=== PATIENT | male | born 1950 | race Caucasian/White ===

== ENCOUNTER 2019-10-05 18:34 | Emergency (ER) | payer MEDICARE, OTHER ==
[~2019-10-05] VITALS: Ht 170.2 cm; Wt 56.7 kg
[2019-10-05] MEDS ORDERED: Prozac20 MG PO (18:41)
[2019-10-05] MEDS ORDERED: LEVE500 (18:41)
[2019-10-05] MEDS ORDERED: Citalopram HBr20 MG PO (18:42)
[2019-10-05] MEDS ORDERED: PLAVIX75 MG PO (18:42)
[2019-10-05] MEDS ORDERED: ROSUVASTATIN CA20 MG PO (18:42)
[2019-10-05] MEDS ORDERED: ASPI81CH PO (18:43)
[2019-10-05 20:55] LABS: Chloride (POC) 94 mmol/L (98-108); Creatinine (POC) 0.7 mg/dL (0.8-1.3); Glucose (ISTAT POC) 113 mg/dL (70-99); Hemoglobin (POC) 12.2 g/dL (13.5-17.5); Potassium (POC) 3.4 mmol/L (3.5-5.5); Sodium (POC) 131 mmol/L (135-148); Total CO2 (POC) 27 mmol/L (21-32)
== END 2019-10-05 21:48 | disposition home or self-care (01) ==
LOC: ER 18:34
PROVIDERS: Emergency Medicine
DX: G40.909 Epilepsy, unspecified, not intractable, without status epilepticus (principal); Z79.899 Other long term (current) drug therapy
CPT/HCPCS: 36415; 80047; 85014; 99284

== ENCOUNTER → 2020-03-22 | Outpatient (CLI) | payer MEDICARE, OTHER ==
[~2020-03-22] MED LIST: ASPI81CH PO; Citalopram HBr20 MG PO; LEVE500; PLAVIX75 MG PO; Prozac20 MG PO; ROSUVASTATIN CA20 MG PO
[2020-03-22 17:40] LABS: BASOPHILS ABSOLUTE AUTO 0.06 K/mm3 (0.00-0.23); BASOPHILS PERCENT AUTO 1 % (0-2); EOSINOPHILS ABSOLUTE AUTO 0.77 K/mm3 (0.00-0.68); EOSINOPHILS PERCENT AUTO 6 % (0-6); Hematocrit 38.5 % (37.0-53.0); Hemoglobin 12.8 g/dL (13.5-17.5); IMMATURE GRAN ABSOLUTE AUTO 0.04 K/mm3 (0.00-0.10); IMMATURE GRAN PERCENT AUTO 0 % (0-1); LYMPHOCYTES ABSOLUTE AUTO 2.25 K/mm3 (0.84-5.20); LYMPHOCYTES PERCENT AUTO 18 % (21-46); MONOCYTES ABSOLUTE AUTO 1.19 K/mm3 (0.16-1.47); MONOCYTES PERCENT AUTO 10 % (4-13); Mean Corpuscular HGB 31.5 pg (26.0-34.0); Mean Corpuscular HGB Conc 33.2 g/dL (31.5-36.5); Mean Corpuscular Volume 95 fL (80-100); Mean Platelet Volume 9.3 fL (9.1-12.4); NEUTROPHILS ABSOLUTE AUTO 7.96 K/mm3 (1.96-9.15); NEUTROPHILS PERCENT AUTO 65 % (41-73); Platelet Count 332 K/mm3 (150-400); RDW Coefficient Variation 12.9 % (11.7-14.2); Red Blood Cell Count 4.06 M/mm3 (4.30-5.90); White Blood Cell Count 12.27 K/mm3 (4.00-11.30)
[2020-03-22 18:46] LABS: Alanine Aminotransfer (ALT/SGP 18 U/L (12-78); Albumin, Blood 3.1 g/dL (3.4-5.0); Albumin/Globulin Ratio 0.8 (0.8-1.8); Alk Phos 75 U/L (50-136); Anion Gap 6 mmol/L (6-16); Aspartate Aminotrans (AST/SGOT 10 U/L (12-37); Bilirubin, Total 0.3 mg/dL (0.1-1.0); Blood Urea Nitrogen 18 mg/dL (8-24); Bun/Creatinine Ratio 19.6 (12.0-20.0); CHOL/HDL RATIO 3.8; CO2, Blood 25 mmol/L (21-32); Calcium, Blood 8.5 mg/dL (8.5-10.1); Chloride, Blood 101 mmol/L (98-108); Cholesterol 152 mg/dL (50-200); Creatinine, Blood 0.92 mg/dL (0.60-1.20); Globulin, Blood 3.8 g/dL (2.2-4.0); Glomerular Filtration Rate >60 (60-); Glucose, Blood 111 mg/dL (70-99); HDL Cholesterol 40 mg/dL (>39); LDL/HDL RATIO 1.8; Low Density Lipoprotein Chol 71 mg/dL (0-110); Potassium, Blood 4.1 mmol/L (3.5-5.5); Sodium, Blood 132 mmol/L (136-145); Total Protein, Blood 6.9 g/dL (6.4-8.2); Triglycerides 205 mg/dL (30-160); Very Low Density Lipoprot Chol 41 mg/dL (6-32)
== END | disposition home or self-care (01) ==
LOC: LAB SHORT 15:59 → LAB 15:59
PROVIDERS: Nurse Practitioner Family
DX: E78.5 Hyperlipidemia, unspecified (principal); I10 Essential (primary) hypertension
CPT/HCPCS: 80053; 80061; 85025

== ENCOUNTER 2020-07-16 18:28 | Inpatient (IN) | payer MEDICARE, OTHER ==
[~2020-07-16] VITALS: Ht 167.6 cm; Wt 67.8 kg
[2020-07-16 19:33] LABS: BASOPHILS ABSOLUTE AUTO 0.04 K/mm3 (0.00-0.23); BASOPHILS PERCENT AUTO 0 % (0-2); EOSINOPHILS PERCENT AUTO 0 % (0-6); Hematocrit 38.7 % (37.0-53.0); Hemoglobin 12.9 g/dL (13.5-17.5); IMMATURE GRAN ABSOLUTE AUTO 0.07 K/mm3 (0.00-0.10); IMMATURE GRAN PERCENT AUTO 1 % (0-1); LYMPHOCYTES ABSOLUTE AUTO 1.19 K/mm3 (0.84-5.20); LYMPHOCYTES PERCENT AUTO 9 % (21-46); MONOCYTES ABSOLUTE AUTO 0.88 K/mm3 (0.16-1.47); MONOCYTES PERCENT AUTO 7 % (4-13); Mean Corpuscular HGB 30.6 pg (26.0-34.0); Mean Corpuscular HGB Conc 33.3 g/dL (31.5-36.5); Mean Corpuscular Volume 92 fL (80-100); Mean Platelet Volume 9.2 fL (9.1-12.4); NEUTROPHILS ABSOLUTE AUTO 11.43 K/mm3 (1.96-9.15); NEUTROPHILS PERCENT AUTO 84 % (41-73); Platelet Count 377 K/mm3 (150-400); RDW Coefficient Variation 13.5 % (11.7-14.2); RDW Standard Deviation 45.8 fL (35.1-46.3); Red Blood Cell Count 4.22 M/mm3 (4.30-5.90); White Blood Cell Count 13.61 K/mm3 (4.00-11.30)
[2020-07-16 19:50] LABS: International Normalized Ratio 0.96; Prothrombin Time Results 10.3 Sec (9.7-11.5)
[2020-07-16 19:51] LABS: Alanine Aminotransfer (ALT/SGP 29 U/L (12-78); Albumin, Blood 3.6 g/dL (3.4-5.0); Albumin/Globulin Ratio 0.9 (0.8-1.8); Alk Phos 76 U/L (50-136); Anion Gap 9 mmol/L (6-16); Aspartate Aminotrans (AST/SGOT 55 U/L (12-37); Bilirubin, Total 0.5 mg/dL (0.1-1.0); Blood Urea Nitrogen 23 mg/dL (8-24); Bun/Creatinine Ratio 30.8 (12.0-20.0); CO2, Blood 22 mmol/L (21-32); Calcium, Blood 8.9 mg/dL (8.5-10.1); Chloride, Blood 104 mmol/L (98-108); Creatinine, Blood 0.75 mg/dL (0.60-1.20); Ethanol (Alcohol), Blood, Med <3 mg/dL; Globulin, Blood 3.9 g/dL (2.2-4.0); Glomerular Filtration Rate >60 (60-); Glucose, Blood 136 mg/dL (70-99); Sodium, Blood 135 mmol/L (136-145); Total Protein, Blood 7.5 g/dL (6.4-8.2)
[2020-07-16 20:00] LABS: Osmolality, Serum 288 mos/KG (275-300)
[2020-07-16 20:11] LABS: Base Excess Venous -1.2 mmol/L; Bicarbonate Venous 23.8 mmol/L (24.0-30.0); PCO2 Venous 34.4 mmHg (38-42); PO2 Venous 95.3 mmHg (38-42); pH Blood Venous 7.44 (7.34-7.37)
[2020-07-17 00:15] LABS: Bilirubin, Urine Neg (Neg); Blood, Urine 5+ (Neg); Glucose Qualitative, Urine Neg (Neg); Ketones, Urine 3+ (Neg); Leukocyte Esterase, Urine Neg (Neg); Nitrite, Urine Neg (Neg); Protein, Urine 2+ (Neg); Source, Urine Clean Catch; Urobilinogen, Urine NORM (Normal)
[2020-07-17 00:25] LABS: Appearance, Urine Clear (Clear); Color, Urine Yellow (P-Yellow)
[2020-07-17 00:26] LABS: Bacteria Mod /hpf; Squamous Epithelial Cells Rare /hpf (Few)
[2020-07-17 00:31] LABS: U Amphetamine Screen Not Detected; U Barbituate Screen Not Detected; U Benzodiazapine Screen Not Detected; U Buprenorphine Screen Not Detected; U Cannabinoids Screen Not Detected; U Cocaine Screen Not Detected; U Methadone Screen Not Detected; U Methamphetamine Screen Not Detected; U Opiates Screen Not Detected; U Oxycodone Screen Not Detected; U Phencyclidine Screen Not Detected; U Propoxyphene Screen Not Detected
--- NOTE | 2020-07-17 02:48 | NUR ---
ASSUMED CARE OF PATIENT AT APPROXIMATELY 2247 FROM ED RN BRADLEY. PATIENT ARRIVED TO UNIT VIA STRETCHER; HEPARIN GTT NOT CONNECTED TO PATIENT AND IV PUMP OFF; HEPARIN GTT RESTARTED AND VERIFIED; PHARMACIST LEO NOTIFIED. PATIENT ARRIVED TO UNIT VIA STRETCHER; TRANSFER FROM ED TO PCU STRETCHER WITH ONE ASSIST. PATIENT CONFUSED; ABLE TO ANSWER SOME QUESTIONS BUT MAKE ODD STATEMENTS. MED REC AND PART OF ADMISSION HX INCOMPLETE. PATIENT DENIES CP/PRESSURE, PAIN ELSEWHERE, NUMBNESS, TINGLING, DIZZINESS OR NAUSEA. PATIENT ABLE TO STATE NAME AND . NSR ON TELE; OXYGEN SATURATION ABOVE 90% ON ROOM AIR. BLADDER SCAN OVER 400; DR. PERALTA NOTIFIED; ORDERS FOR STRAIGHT CATH AND RECHECK BLADDER SCAN IN 6 HOURS. PATIENT ATTEMPTS TO AMBULATE INDEPENDENTLY; EDUCATED MULTIPLE TIMES BUSINESS DEVELOPMENT PROFESSIONAL LIGHT USAGE. PATIENT CURRENTLY RESTING IN BED; CALL LIGHT IN REACH; BED IN LOWEST POSISTION; BED ALARM ON; WILL CONTINUE TO MONITOR AND ASSESS UNTIL END OF SHIFT.
--- NOTE | 2020-07-17 03:11 | NUR ---
AT APPROXIMATELY 0259 PATIENT MOANED OUT LOUD; STAFF ENTERED ROOM TO FIND PATIENT LAYING IN BED WITH ARMS CROSSED TIGHTLY OVER CHEST; EYES CLOSED AND PATIENT SEIZING; PATIENT HAS HISTORY OF SEIZURE ACTIVITY. DR. CHURCH NOTIFIED; ORDERS FOR IV KEPPRA NOW AND THEN BID; ATIVAN PRN. VSS. PATIENT MORE ALERT AFTER ABOUT EIGHT MINUTES. NEW IV TO BE PLACED. WILL CONTINUE TO MONITOR AND ASSESS UNTIL END OF SHIFT.
--- NOTE | 2020-07-17 03:30 | NUR ---
CHEST PAIN; PATIENT REPORTS HIS HEART HURTS AND MOANING IN BED; VSS; 1X NITRO GIVEN AND EKG DONE; APPEARS TO HAVE RELIEVED PATIENT; PATIENT FEEL ASLEEP; HEPARIN GTT INCREASED PER ORDER.
[2020-07-17 03:36] LABS: BASOPHILS ABSOLUTE AUTO 0.11 K/mm3 (0.00-0.23); BASOPHILS PERCENT AUTO 1 % (0-2); EOSINOPHILS ABSOLUTE AUTO 0.04 K/mm3 (0.00-0.68); EOSINOPHILS PERCENT AUTO 0 % (0-6); Hematocrit 42.4 % (37.0-53.0); Hemoglobin 13.5 g/dL (13.5-17.5); IMMATURE GRAN ABSOLUTE AUTO 0.56 K/mm3 (0.00-0.10); IMMATURE GRAN PERCENT AUTO 3 % (0-1); LYMPHOCYTES ABSOLUTE AUTO 3.18 K/mm3 (0.84-5.20); LYMPHOCYTES PERCENT AUTO 17 % (21-46); MONOCYTES ABSOLUTE AUTO 1.63 K/mm3 (0.16-1.47); MONOCYTES PERCENT AUTO 9 % (4-13); Mean Corpuscular HGB 30.7 pg (26.0-34.0); Mean Corpuscular HGB Conc 31.8 g/dL (31.5-36.5); Mean Corpuscular Volume 96 fL (80-100); Mean Platelet Volume 9.1 fL (9.1-12.4); NEUTROPHILS PERCENT AUTO 70 % (41-73); NRBC ABSOLUTE 0.04 K/mm3 (0.00-0.02); NRBC Auto 0.2 /100 WBC (0.0-0.2); Platelet Count 388 K/mm3 (150-400); RDW Coefficient Variation 13.8 % (11.7-14.2); RDW Standard Deviation 49.1 fL (35.1-46.3); White Blood Cell Count 18.52 K/mm3 (4.00-11.30)
[2020-07-17 04:09] LABS: Alanine Aminotransfer (ALT/SGP 30 U/L (12-78); Albumin, Blood 3.7 g/dL (3.4-5.0); Albumin/Globulin Ratio 0.9 (0.8-1.8); Alk Phos 96 U/L (50-136); Anion Gap 21 mmol/L (6-16); Aspartate Aminotrans (AST/SGOT 54 U/L (12-37); Bilirubin, Total 0.6 mg/dL (0.1-1.0); Blood Urea Nitrogen 24 mg/dL (8-24); CO2, Blood 14 mmol/L (21-32); Chloride, Blood 104 mmol/L (98-108); Creatinine, Blood 0.83 mg/dL (0.60-1.20); Globulin, Blood 4.3 g/dL (2.2-4.0); Glomerular Filtration Rate >60 (60-); Glucose, Blood 151 mg/dL (70-99); Magnesium, Blood 2.4 mg/dL (1.6-2.4); Potassium, Blood 3.3 mmol/L (3.5-5.5); Sodium, Blood 139 mmol/L (136-145)
[2020-07-17 04:22] LABS: Troponin I 7.07 ng/mL (0.000-0.040)
--- NOTE | 2020-07-17 06:21 | NUR ---
PATIENT MEDICATED ONCE FOR PAIN; LAYING IN POSISTION IN BED. BLADDER SCAN OF 372 THIS AM. VSS. NO OTHER ACUTE CHANGES TO REPORT. PATIENT HAS BEEN NPO SINCE ARRIVAL TO UNIT. TROPONIN TRENDING DOWN. WILL CONTINUE TO MONITOR AND ASSESS UNTIL END OF SHIFT.
[2020-07-17 11:04] LABS: Source, Urine Catheter
[2020-07-17 11:09] LABS: Bilirubin, Urine Neg (Neg); Blood, Urine 4+ (Neg); Glucose Qualitative, Urine Neg (Neg); Ketones, Urine 3+ (Neg); Leukocyte Esterase, Urine 1+ (Neg); Nitrite, Urine Neg (Neg); Protein, Urine 2+ (Neg); Urobilinogen, Urine NORM (Normal)
[2020-07-17 11:25] LABS: Appearance, Urine Clear (Clear); Color, Urine Yellow (P-Yellow)
[2020-07-17 11:28] LABS: Bacteria Rare /hpf; Squamous Epithelial Cells Rare /hpf (Few)
--- NOTE | 2020-07-17 17:00 | NUR ---
SHIFT SUMMARY PT ALERT AND BECOMING MORE ORIENTED THIS AFTERNOON. PT NOW ABLE TO STATE WHERE HE IS, , AND PLACE. PT FOLLOWING DIRECTIONS. VS STABLE. 02 SATS REMAIN ABOVE 90% ON RA. BP STABLE. HR NSR. SMITH CATHETER PLACED DUE TO RETENTION THIS SHIFT. PT HAS NOT HAD ANY SEIZURE LIKE ACTIVITY THIS SHIFT. PT DENIES ANY CP/PRESSURE. HEP GTT INFUSING PER ORDERS. BED ALARM ON FOR SAFETY. WILL CONTINUE TO MONITOR AND REPORT TO ONCOMING RN.
--- NOTE | 2020-07-18 07:50 | NUR ---
SUMMARY NO ACUTE CHANGES NOTED THROUGH THE NIGHT, PT APPEARS TO BE A&O X3, VSS, MEDICATED FOR BACK PAIN WITH TYLENOL, DENIES CP, PT WAS AMBULATED WITH 1 ASSIST, HE SAT AT THE BEDSIDE TN A CHAIR THIS AM, EGGCRATE PAD WAS PLACED TO THE MATTRESS FOR COMFORT, PT IS TOLERATING PO INTAKE, NPO SINCE MIDNIGHT, BED ALARM IS ON FOR SAFETY, HEP GTT INFUSING PER EMAR, REPORT GIVEN TO DAY RN, CALL LIGHT IN REACH.
[2020-07-18 08:27] LABS: BASOPHILS ABSOLUTE AUTO 0.08 K/mm3 (0.00-0.23); BASOPHILS PERCENT AUTO 1 % (0-2); EOSINOPHILS ABSOLUTE AUTO 0.11 K/mm3 (0.00-0.68); EOSINOPHILS PERCENT AUTO 1 % (0-6); Hematocrit 37.1 % (37.0-53.0); Hemoglobin 12.2 g/dL (13.5-17.5); IMMATURE GRAN PERCENT AUTO 1 % (0-1); LYMPHOCYTES ABSOLUTE AUTO 1.58 K/mm3 (0.84-5.20); LYMPHOCYTES PERCENT AUTO 10 % (21-46); MONOCYTES ABSOLUTE AUTO 1.47 K/mm3 (0.16-1.47); MONOCYTES PERCENT AUTO 9 % (4-13); Mean Corpuscular HGB 30.7 pg (26.0-34.0); Mean Corpuscular HGB Conc 32.9 g/dL (31.5-36.5); Mean Corpuscular Volume 94 fL (80-100); NEUTROPHILS ABSOLUTE AUTO 13.23 K/mm3 (1.96-9.15); NEUTROPHILS PERCENT AUTO 80 % (41-73); Platelet Count 329 K/mm3 (150-400); RDW Coefficient Variation 13.9 % (11.7-14.2); RDW Standard Deviation 47.4 fL (35.1-46.3); Red Blood Cell Count 3.97 M/mm3 (4.30-5.90); White Blood Cell Count 16.57 K/mm3 (4.00-11.30)
[2020-07-18 08:46] LABS: Anion Gap 8 mmol/L (6-16); Blood Urea Nitrogen 23 mg/dL (8-24); Bun/Creatinine Ratio 31.8 (12.0-20.0); CO2, Blood 24 mmol/L (21-32); Calcium, Blood 8.4 mg/dL (8.5-10.1); Chloride, Blood 105 mmol/L (98-108); Creatinine, Blood 0.72 mg/dL (0.60-1.20); Glomerular Filtration Rate >60 (60-); Glucose, Blood 102 mg/dL (70-99); Potassium, Blood 3.5 mmol/L (3.5-5.5); Sodium, Blood 137 mmol/L (136-145)
--- NOTE | 2020-07-18 13:44 | NUR ---
UPDATE PT TAKEN TO [facility]. WILL AWAIT RETURN.
--- NOTE | 2020-07-18 15:00 | NUR ---
PT RETURNED FROM [facility]. VS STABLE. 02 SATS REMAIN ABOVE 90% ON 2L NC. PT LETHARGIC BUT AWAKES TO VERBAL STIMULI. DR. CROWLEY IN WITH PLANS TO [place] TO [facility] FOR CABG. WILL CONTINUE TO MONITOR CLOSELY.
--- NOTE | 2020-07-18 16:57 | NUR ---
UPDATE [facility] WITH ACCEPTING PHYSICIAN AND BED ASSIGNMENT. REPORT CALLED TO CHRISTINE JARA. TRANSPORT CALLED AND TO BE HERE WITHIN APPROXIMATELY 15MIN. PT TO TRANSPORT WITH HEP GTT INFUSING.
== END 2020-07-18 17:10 | disposition short-term general hospital (02) | DRG 280 ==
LOC: ER 18:28 → PCU 21:45
PROVIDERS: Emergency Medicine; Student in an Organized Health Care Education/Training Program; ADMIT Internal Medicine
DX: I25.10 Atherosclerotic heart disease of native coronary artery without angina pectoris (principal); I21.4 Non-ST elevation (NSTEMI) myocardial infarction; G92 Toxic encephalopathy; S22.31XA Fracture of one rib, right side, initial encounter for closed fracture; I50.20 Unspecified systolic (congestive) heart failure; I24.9 Acute ischemic heart disease, unspecified; I11.0 Hypertensive heart disease with heart failure; E78.5 Hyperlipidemia, unspecified; J44.9 Chronic obstructive pulmonary disease, unspecified; E87.6 Hypokalemia; G40.909 Epilepsy, unspecified, not intractable, without status epilepticus; M41.9 Scoliosis, unspecified
CPT/HCPCS: 36415; 51701; 51702; 70450; 71045; 80048; 80053; 81001; 82140; 82550; 82803; 82947; 83605; 83735; 83880; 83930; 84439; 84443; 84484; 85025; 85610; 85730; 86850; 86900; 86901; 87040; 87077; 87086; 87186; 93005; 93010; 93306; 93458; 96374; 96375; 99152; 99153; 99285-25; A9270; A9270-GY; C1769; C1894; G0008; G0480; J1644; J1953; J2060; J2250; J3010; J7030; J7040; Q2038; Q9967; U0003

== ENCOUNTER → 2020-08-17 | Outpatient (CLI) | payer MEDICARE, OTHER ==
[2020-08-17 18:19] LABS: BASOPHILS ABSOLUTE AUTO 0.04 K/mm3 (0.00-0.23); BASOPHILS PERCENT AUTO 1 % (0-2); EOSINOPHILS ABSOLUTE AUTO 0.53 K/mm3 (0.00-0.68); EOSINOPHILS PERCENT AUTO 7 % (0-6); Hematocrit 36.3 % (37.0-53.0); Hemoglobin 11.4 g/dL (13.5-17.5); IMMATURE GRAN ABSOLUTE AUTO 0.02 K/mm3 (0.00-0.10); IMMATURE GRAN PERCENT AUTO 0 % (0-1); LYMPHOCYTES ABSOLUTE AUTO 1.87 K/mm3 (0.84-5.20); LYMPHOCYTES PERCENT AUTO 24 % (21-46); MONOCYTES ABSOLUTE AUTO 0.83 K/mm3 (0.16-1.47); MONOCYTES PERCENT AUTO 10 % (4-13); Mean Corpuscular HGB 30.2 pg (26.0-34.0); Mean Corpuscular HGB Conc 31.4 g/dL (31.5-36.5); Mean Corpuscular Volume 96 fL (80-100); Mean Platelet Volume 9.6 fL (9.1-12.4); NEUTROPHILS ABSOLUTE AUTO 4.67 K/mm3 (1.96-9.15); NEUTROPHILS PERCENT AUTO 59 % (41-73); Platelet Count 311 K/mm3 (150-400); RDW Coefficient Variation 15.1 % (11.7-14.2); RDW Standard Deviation 53.2 fL (35.1-46.3); Red Blood Cell Count 3.77 M/mm3 (4.30-5.90); White Blood Cell Count 7.96 K/mm3 (4.00-11.30)
[2020-08-17 19:22] LABS: Alanine Aminotransfer (ALT/SGP 21 U/L (12-78); Albumin, Blood 3.1 g/dL (3.4-5.0); Albumin/Globulin Ratio 0.9 (0.8-1.8); Alk Phos 112 U/L (50-136); Anion Gap 4 mmol/L (6-16); Aspartate Aminotrans (AST/SGOT 14 U/L (12-37); Bilirubin, Total 0.5 mg/dL (0.1-1.0); Blood Urea Nitrogen 17 mg/dL (8-24); Bun/Creatinine Ratio 16.7 (12.0-20.0); CO2, Blood 30 mmol/L (21-32); Calcium, Blood 8.7 mg/dL (8.5-10.1); Chloride, Blood 109 mmol/L (98-108); Creatinine, Blood 1.02 mg/dL (0.60-1.20); Globulin, Blood 3.5 g/dL (2.2-4.0); Glomerular Filtration Rate >60 (60-); Glucose, Blood 80 mg/dL (70-99); Potassium, Blood 4.2 mmol/L (3.5-5.5); Sodium, Blood 143 mmol/L (136-145); Total Protein, Blood 6.6 g/dL (6.4-8.2)
[2020-08-21 10:37] LABS: LDL/HDL RATIO 1.5
[2020-08-21 10:38] LABS: CHOL/HDL RATIO 2.8; Cholesterol 159 mg/dL (50-200); HDL Cholesterol 57 mg/dL (>39); Low Density Lipoprotein Chol 84 mg/dL (0-110); Triglycerides 88 mg/dL (30-160); Very Low Density Lipoprot Chol 17 mg/dL (6-32)
== END ==
LOC: LAB 17:04 → LAB SHORT 17:04
PROVIDERS: Nurse Practitioner Family
DX: I21.4 Non-ST elevation (NSTEMI) myocardial infarction (principal); E78.5 Hyperlipidemia, unspecified
CPT/HCPCS: 80053; 80061; 85025

== ENCOUNTER → 2020-08-22 | Outpatient (CLI) | payer MEDICARE, OTHER ==
[2020-08-22 17:27] LABS: Source, Urine Clean Catch
[2020-08-22 20:17] LABS: Amorphous Heavy (0-Heavy); Bacteria Not Seen /hpf; Calcium Oxalate Crystals Few /hpf; Red Blood Cells, Urine 0-2 /hpf (0-2); Squamous Epithelial Cells Not Seen /hpf (Few); White Blood Cells, Urine 0-2 /hpf (0-5)
== END | disposition home or self-care (01) ==
LOC: LAB SHORT 17:24 → LAB 17:24
PROVIDERS: Nurse Practitioner Family
DX: R31.9 Hematuria, unspecified (principal)
CPT/HCPCS: 81015

== ENCOUNTER → 2020-11-22 | Outpatient (CLI) | payer MEDICARE, OTHER ==
[2020-11-22 18:32] LABS: BASOPHILS ABSOLUTE AUTO 0.06 K/mm3 (0.00-0.23); BASOPHILS PERCENT AUTO 1 % (0-2); EOSINOPHILS ABSOLUTE AUTO 0.64 K/mm3 (0.00-0.68); EOSINOPHILS PERCENT AUTO 7 % (0-6); Hematocrit 41.1 % (37.0-53.0); Hemoglobin 13.5 g/dL (13.5-17.5); IMMATURE GRAN ABSOLUTE AUTO 0.04 K/mm3 (0.00-0.10); IMMATURE GRAN PERCENT AUTO 0 % (0-1); LYMPHOCYTES ABSOLUTE AUTO 1.92 K/mm3 (0.84-5.20); LYMPHOCYTES PERCENT AUTO 20 % (21-46); MONOCYTES ABSOLUTE AUTO 0.98 K/mm3 (0.16-1.47); MONOCYTES PERCENT AUTO 10 % (4-13); Mean Corpuscular HGB 30.5 pg (26.0-34.0); Mean Corpuscular HGB Conc 32.8 g/dL (31.5-36.5); Mean Corpuscular Volume 93 fL (80-100); NEUTROPHILS PERCENT AUTO 62 % (41-73); Platelet Count 317 K/mm3 (150-400); RDW Coefficient Variation 13.8 % (11.7-14.2); RDW Standard Deviation 46.7 fL (35.1-46.3); Red Blood Cell Count 4.43 M/mm3 (4.30-5.90); White Blood Cell Count 9.54 K/mm3 (4.00-11.30)
[2020-11-22 19:32] LABS: CHOL/HDL RATIO 2.6; Cholesterol 168 mg/dL (50-200); Ferritin, Serum 22 ng/mL (26-388); HDL Cholesterol 65 mg/dL (>39); Iron Serum 41 ug/dL (65-175); LDL/HDL RATIO 1.4; Low Density Lipoprotein Chol 94 mg/dL (0-110); Percent Saturation 10.8 % (20.0-50.0); Total Iron Binding Capacity 378 ug/dL (250-450); Triglycerides 47 mg/dL (30-160); Very Low Density Lipoprot Chol 9 mg/dL (6-32)
[2020-11-23 10:12] LABS: Alanine Aminotransfer (ALT/SGP 20 U/L (12-78); Albumin, Blood 3.5 g/dL (3.4-5.0); Albumin/Globulin Ratio 1.1 (0.8-1.8); Alk Phos 88 U/L (50-136); Anion Gap 9 mmol/L (6-16); Aspartate Aminotrans (AST/SGOT 17 U/L (12-37); Bilirubin, Total 0.2 mg/dL (0.1-1.0); Blood Urea Nitrogen 24 mg/dL (8-24); Bun/Creatinine Ratio 32.3 (12.0-20.0); CO2, Blood 23 mmol/L (21-32); Calcium, Blood 8.4 mg/dL (8.5-10.1); Chloride, Blood 103 mmol/L (98-108); Creatinine, Blood 0.74 mg/dL (0.60-1.20); Globulin, Blood 3.3 g/dL (2.2-4.0); Glomerular Filtration Rate >60 (60-); Glucose, Blood 90 mg/dL (70-99); Potassium, Blood 5.1 mmol/L (3.5-5.5); Sodium, Blood 135 mmol/L (136-145); Total Protein, Blood 6.8 g/dL (6.4-8.2)
== END | disposition home or self-care (01) ==
LOC: LAB SHORT 16:20 → LAB 16:20
PROVIDERS: Nurse Practitioner Family
DX: I10 Essential (primary) hypertension (principal); E78.5 Hyperlipidemia, unspecified; D50.9 Iron deficiency anemia, unspecified
CPT/HCPCS: 80053; 80061; 82728; 83540; 83550; 85025